=== PATIENT | female | born 1940 | race Caucasian/White ===

== ENCOUNTER 2017-02-09 16:28 | Emergency (ER) | payer MEDICARE, MEDICAID ==
[2017-02-09] MEDS: KETOROLAC 30 MG INJ IM (19:07)
== END 2017-02-09 22:12 | disposition home or self-care (01) ==
LOC: FTE 16:28
DX: M54.9 Dorsalgia, unspecified (principal); I10 Essential (primary) hypertension
CPT/HCPCS: 72072; 72100; 96372; 99284-25

== ENCOUNTER 2017-11-26 11:17 | Emergency (ER) | payer MEDICARE, MEDICAID ==
[2017-11-26 13:34] LABS: ADD UMIC YES; UR ASCORBIC ACID 40 mg/dL (NEGATIVE); UR BILIRUBIN (Dip) NEGATIVE (NEGATIVE); UR BLOOD (Dip) NEGATIVE (NEGATIVE); UR CLARITY SLIGHTLY CLOUDY (CLEAR); UR COLOR YELLOW (YELLOW); UR GLUCOSE (Dip) NEGATIVE (NEGATIVE); UR KETONES (Dip) TRACE mg/dL (NEGATIVE); UR LEUKOCYTE ESTERASE (Dip) 1+ Leu/ul (NEGATIVE); UR MUCUS FEW /HPF (NONE SEEN); UR NITRITE (Dip) NEGATIVE (NEGATIVE); UR RBC 4 /HPF (0-5); UR TOTAL PROTEIN (Dip) NEGATIVE (NEGATIVE); UR UROBILINOGEN (Dip) NEGATIVE (NEGATIVE); UR WBC 7 /HPF (0-5)
[2017-11-26] MEDS: PHENAZOPYRIDINE 100 MG TAB PO (14:11)
[2017-11-26] MEDS: CEPHALEXIN 500 MG CAP PO (14:11)
== END 2017-11-26 14:40 | disposition home or self-care (01) ==
LOC: FTE 11:17
DX: N30.00 Acute cystitis without hematuria (principal); I10 Essential (primary) hypertension
CPT/HCPCS: 81001; 99283

== ENCOUNTER 2018-06-26 12:31 | Emergency (ER) | payer MEDICARE, OTHER, MEDICAID ==
[2018-06-26] MEDS: LIDOCAINE 1% (MPF) 5 ML VIAL INJ (12:53)
[2018-06-26] MEDS: CEFAZOLIN 1 GM INJ IM (14:20)
== END 2018-06-26 14:38 | disposition home or self-care (01) ==
LOC: FTE 12:31
DX: S61.212A Laceration without foreign body of right middle finger without damage to nail, initial encounter (principal); I10 Essential (primary) hypertension; W23.0XXA Caught, crushed, jammed, or pinched between moving objects, initial encounter; Y92.9 Unspecified place or not applicable
CPT/HCPCS: 12002; 73130-RT; 96372; 99284-25